=== PATIENT | female | born 1960 | race Caucasian/White ===

== ENCOUNTER 2025-04-25 10:20 | Outpatient (CLI) | payer OTHER, SELFPAY | END 2025-04-25 10:21 | disposition home or self-care (01) | LOC: NFLDREF 04-29 17:45 | PROVIDERS: Visit Provider Obstetrics & Gynecology | DX: R33.9 Retention of urine, unspecified (principal) | CPT/HCPCS: 87086 ==

== ENCOUNTER 2025-05-20 11:09 | Outpatient (CLI) | payer OTHER, SELFPAY | END 2025-05-20 11:10 | disposition home or self-care (01) | LOC: NFLDREF 11:10 | PROVIDERS: Visit Provider Obstetrics & Gynecology | DX: L65.9 Nonscarring hair loss, unspecified (principal); R53.83 Other fatigue | CPT/HCPCS: 84443 ==